=== PATIENT | female | born 1950 | race Caucasian/White ===

== ENCOUNTER → 2017-06-07 | Outpatient (CLI) | payer MEDICARE | END | disposition home or self-care (01) | LOC: CFH 11:43 | PROVIDERS: ATTEND Internal Medicine Geriatric Medicine | DX: Z12.2 Encounter for screening for malignant neoplasm of respiratory organs (principal); Z13.820 Encounter for screening for osteoporosis; I25.10 Atherosclerotic heart disease of native coronary artery without angina pectoris; F17.210 Nicotine dependence, cigarettes, uncomplicated | CPT/HCPCS: 77080; G0297 ==

== ENCOUNTER 2018-12-15 05:20 | Inpatient (IN) | payer MEDICARE ==
[~2018-12-15] VITALS: Ht 154.9 cm; Wt 64.7 kg
[2018-12-15] MEDS ORDERED: ASPI-496 PO (05:44)
[2018-12-15] MEDS ORDERED: SYNTHROID (05:44)
[2018-12-15] MEDS ORDERED: ONDANSETRON 2MG/ML, 2ML ONE (05:46)
[2018-12-15] MEDS ORDERED: MORPHINE SULFATE 4 MG/ML, 1ML ONE (05:47)
[2018-12-15] MEDS ORDERED: MORPHINE SULFATE 4 MG/ML, 1ML IVPush PRN (06:00)
[2018-12-15] MEDS ORDERED: ONDANSETRON 2MG/ML, 2ML IVPush ONE (06:00)
[2018-12-15] MEDS ORDERED: PLEASE ENTER ALLERGIES MC SCH (06:00)
--- NOTE | 2018-12-15 06:01 | NUR ---
PT PLACED ON 3L O2 PER N/C. PT DESATED TO 79% AFTER ORDERED PAIN MEDS. PT GIVEN WARM BLANKET. LAB IN TO DRAW BLOOD AT THIS TIME. CXR HAS BEEN DONE.
[2018-12-15 06:17] LABS: BASOPHILS # (AUTO) 0.09 x10^3/uL (0-0.1); BASOPHILS % (AUTO) 1 % (0-1); EOSINOPHILS # (AUTO) 0.17 x10^3/uL (0-0.4); EOSINOPHILS % (AUTO) 2 % (1-7); LYMPHOCYTES # (AUTO) 1.82 x10^3/uL (1-3.4); LYMPHOCYTES % (AUTO) 18 % (22-44); MD NO; MEAN CORPUSCULAR HEMOGLOBIN 28.2 pg (27.0-34.8); MEAN CORPUSCULAR HGB CONC 33.1 g/dL (32.4-35.8); MEAN CORPUSCULAR VOLUME 85.4 fL (80-100); MEAN PLATELET VOLUME 9.9 fL (7.4-10.4); MONOCYTES # (AUTO) 0.37 x10^3/uL (0.2-0.8); MONOCYTES % (AUTO) 4 % (2-9); NEUTROPHILS # (AUTO) 7.49 x10^3/uL (1.8-6.8); NEUTROPHILS % (AUTO) 75 % (42-75); PLATELET COUNT 200 x10^3/uL (130-400); RED BLOOD COUNT 5.81 x10^6/uL (3.82-5.3); RED CELL DISTRIBUTION WIDTH 15.3 % (9.6-15.2)
[2018-12-15 06:28] LABS: ALANINE AMINOTRANSFERASE 25 U/L (12-78); ALBUMIN 3.7 g/dL (3.4-5.0); ANION GAP 4 mmol/L (5-15); CALCIUM 8.7 mg/dL (8.5-10.1); CHLORIDE 113 mmol/L (98-107); CREATININE 0.71 mg/dL (0.55-1.02); INTERNATIONAL NORMALIZED RATIO 1.01 (0.93-1.1); PROTHROMBIN TIME 10.6 Seconds (9.6-11.5)
[2018-12-15 06:33] LABS: ALKALINE PHOSPHATASE 82 U/L (45-117); BILIRUBIN,TOTAL 0.4 mg/dL (0.2-1.0); TOTAL PROTEIN 6.8 g/dL (6.4-8.2); TROPONIN I 0.049 ng/mL (0.000-0.045)
--- NOTE | 2018-12-15 06:58 | NUR ---
REPORT TO JULIO C CRUZ.
[2018-12-15] MEDS ORDERED: PROMETHAZINE 25 MG/ML, 1ML IM PRN (07:30)
[2018-12-15] MEDS ORDERED: ONDANSETRON 2MG/ML, 2ML IVPush PRN (07:30)
[2018-12-15] MEDS ORDERED: NITROGLYCERIN 0.4 MG BOTTLE (25 TABS) SL PRN (07:30)
[2018-12-15] MEDS ORDERED: LABETALOL 5MG/ML, 20ML IVPush PRN (07:30)
[2018-12-15] MEDS ORDERED: morphine SULFATE 10 MG/ML, 1ML IVPush PRN (07:30)
[2018-12-15] MEDS ORDERED: DEXTROSE 50%, 50ML SYRINGE IVPush PRN (07:30)
[2018-12-15] MEDS ORDERED: DEXTROSE 4 GM TAB.CHEW PO PRN (07:30)
[2018-12-15] MEDS ORDERED: hydrALAzine 20 MG/ML, 1ML IVPush PRN (07:30)
[2018-12-15] MEDS ORDERED: GLUCAGON 1 MG IM PRN (07:30)
[2018-12-15] MEDS ORDERED: ACETAMINOPHEN 325 MG TABLET PO PRN (07:30)
[2018-12-15] MEDS ORDERED: HEPARIN 25,000 UNITS/500ML PMX 500 ML IV STA (08:26)
[2018-12-15] MEDS: SODIUM CHLORIDE 0.9% 1,000 ML IV SCH ×2 (08:39→09:36)
[2018-12-15 08:52] LABS: HEMOGLOBIN A1C 5.4 % (4.2-6.3)
[2018-12-15] MEDS ORDERED: HEPARIN 5,000 UNITS/ML, 1ML IV PRN (09:00)
[2018-12-15] MEDS ORDERED: HEPARIN 25,000 UNITS/500ML PMX 500 ML IV PRN (09:00)
[2018-12-15] MEDS ORDERED: HEPARIN 5,000 UNITS/ML, 1ML IV ONE (09:00)
[2018-12-15 09:21] VITALS: BP 139/84
[2018-12-15] MEDS: ASPIRIN 81 MG TABLET CHEW PO SCH (09:36)
[2018-12-15] MEDS: SODIUM CHLORIDE FLUSH 10ML SYR IVF SCH ×2 (09:36→20:50)
[2018-12-15] MEDS ORDERED: SODIUM CHLORIDE 0.9% 1,000 ML IV SCH ×2 (11:00→13:20)
[2018-12-15] MEDS ORDERED: OMNIPAQUE 350 MG/ML, 100ML BOTTLE ONE (11:29)
[2018-12-15] MEDS: LISINOPRIL 5 MG TABLET PO SCH ×2 (11:54→20:50)
[2018-12-15] MEDS: NICOTINE 14MG/24 HR PATCH.TD24 TD SCH (11:54)
[2018-12-15] MEDS: CARVEDILOL 6.25 MG TABLET PO SCH ×2 (11:54→19:48)
[2018-12-15] MEDS ORDERED: LIDOCAINE 2%, 20ML ONE (12:05)
[2018-12-15] MEDS ORDERED: MIDAZOLAM 1 MG/ML, 5ML ONE (12:05)
[2018-12-15] MEDS ORDERED: FENTANYL PF 100 MCG/2ML ONE (12:05)
[2018-12-15] MEDS ORDERED: VERAPAMIL 2.5 MG/ML, 2ML ONE (12:05)
[2018-12-15] MEDS ORDERED: NITROGLYCERIN 5 MG/ML, 10ML ONE (12:05)
[2018-12-15] MEDS ORDERED: HEPARIN 1,000 UNITS/ML, 10ML ONE (12:05)
[2018-12-15] MEDS ORDERED: BIVALIRUDIN 250 MG ONE (12:05)
[2018-12-15] MEDS ORDERED: PRASUGREL 10 MG TABLET ONE (13:05)
[2018-12-15] MEDS ORDERED: BIVALIRUDIN 250 MG in SODIUM CHLORIDE 0.9% 50 ML IV SCH (13:20)
[2018-12-15 13:35] VITALS: BP 112/72
[2018-12-15 20:12] VITALS: BP 114/70
[2018-12-15] MEDS: ATORVASTATIN 80 MG TABLET PO SCH (20:50)
[2018-12-16 03:28] VITALS: BP 129/83
[2018-12-16] MEDS: CARVEDILOL 6.25 MG TABLET PO SCH (05:48)
[2018-12-16] MEDS: SODIUM CHLORIDE 0.9% 1,000 ML IV SCH (05:49)
[2018-12-16 06:09] LABS: BASOPHILS # (AUTO) 0.11 x10^3/uL (0-0.1); BASOPHILS % (AUTO) 1 % (0-1); EOSINOPHILS # (AUTO) 0.22 x10^3/uL (0-0.4); EOSINOPHILS % (AUTO) 3 % (1-7); LYMPHOCYTES # (AUTO) 2.69 x10^3/uL (1-3.4); LYMPHOCYTES % (AUTO) 31 % (22-44); MD NO; MEAN CORPUSCULAR HEMOGLOBIN 27.7 pg (27.0-34.8); MEAN CORPUSCULAR VOLUME 84.2 fL (80-100); MEAN PLATELET VOLUME 9.8 fL (7.4-10.4); MONOCYTES # (AUTO) 0.57 x10^3/uL (0.2-0.8); MONOCYTES % (AUTO) 7 % (2-9); NEUTROPHILS % (AUTO) 59 % (42-75); PLATELET COUNT 191 x10^3/uL (130-400); RED BLOOD COUNT 5.37 x10^6/uL (3.82-5.3); RED CELL DISTRIBUTION WIDTH 15.2 % (9.6-15.2)
[2018-12-16 06:22] LABS: ALBUMIN 3.2 g/dL (3.4-5.0); ANION GAP 6 mmol/L (5-15); CALCIUM 8.2 mg/dL (8.5-10.1); CHLORIDE 112 mmol/L (98-107)
[2018-12-16 06:26] LABS: ALANINE AMINOTRANSFERASE 62 U/L (12-78); ALKALINE PHOSPHATASE 81 U/L (45-117); BILIRUBIN,TOTAL 0.5 mg/dL (0.2-1.0); CHOL/HDL RATIO 4.4; CHOLESTEROL, TOTAL 193 mg/dL (140-239); CREATININE 0.53 mg/dL (0.55-1.02); HDL CHOL % 23 % (28-40); HDL CHOLESTEROL (DIRECT) 44 mg/dL (40-60); LDL CHOLESTEROL,CALCULATED 125 mg/dL (54-169); LDL/HDL RATIO 2.8 (0.5-3.0); TOTAL PROTEIN 5.9 g/dL (6.4-8.2); TRIGLYCERIDES 118 mg/dL (50-200); VLDL CHOLESTEROL 24 mg/dL (0-25)
[2018-12-16 08:00] VITALS: BP 125/78
[2018-12-16] MEDS: LISINOPRIL 5 MG TABLET PO SCH (08:34)
[2018-12-16] MEDS: ASPIRIN 81 MG TABLET CHEW PO SCH (08:35)
[2018-12-16] MEDS: PRASUGREL 10 MG TABLET PO SCH (08:35)
[2018-12-16] MEDS: NICOTINE 14MG/24 HR PATCH.TD24 TD SCH (08:37)
[2018-12-16] MEDS: SODIUM CHLORIDE FLUSH 10ML SYR IVF SCH ×2 (08:37→20:50)
[2018-12-16 12:30] VITALS: BP 122/77
[2018-12-16] MEDS: CARVEDILOL 3.125 MG TABLET PO SCH (18:23)
[2018-12-16] MEDS: LISINOPRIL 10 MG TABLET PO SCH (20:50)
[2018-12-16] MEDS: ATORVASTATIN 80 MG TABLET PO SCH (20:50)
[2018-12-16 21:19] VITALS: BP 134/86
[2018-12-17 04:00] VITALS: BP 118/69
[2018-12-17] MEDS: CARVEDILOL 3.125 MG TABLET PO SCH (05:12)
[2018-12-17] MEDS ORDERED: LEVOTHYROXINE 50 MCG TABLET PO SCH (06:00)
[2018-12-17 06:05] LABS: ALBUMIN 3.2 g/dL (3.4-5.0); CHLORIDE 113 mmol/L (98-107)
[2018-12-17 06:21] LABS: ALANINE AMINOTRANSFERASE 155 U/L (12-78); ALKALINE PHOSPHATASE 104 U/L (45-117); ANION GAP 8 mmol/L (5-15); BILIRUBIN,TOTAL 0.5 mg/dL (0.2-1.0); CREATININE 0.55 mg/dL (0.55-1.02); TOTAL PROTEIN 5.8 g/dL (6.4-8.2)
[2018-12-17 07:00] VITALS: BP 121/87
[2018-12-17] MEDS: NICOTINE 14MG/24 HR PATCH.TD24 TD SCH (08:23)
[2018-12-17] MEDS: LISINOPRIL 10 MG TABLET PO SCH (08:23)
[2018-12-17] MEDS: SODIUM CHLORIDE FLUSH 10ML SYR IVF SCH (08:24)
[2018-12-17] MEDS: ASPIRIN 81 MG TABLET CHEW PO SCH (08:24)
[2018-12-17] MEDS: PRASUGREL 10 MG TABLET PO SCH (08:24)
[2018-12-17] MEDS ORDERED: LISI-167 PO (11:13)
[2018-12-17] MEDS ORDERED: CARV3.1212 PO (11:13)
[2018-12-17] MEDS ORDERED: PRAS10TA4 PO (11:13)
[2018-12-17] MEDS ORDERED: NITR0.4T28 SL (11:13)
[2018-12-17] MEDS ORDERED: ATOR40TA78 PO ×2 (11:13)
[2018-12-17] MEDS ORDERED: ATOR20TA37 PO (11:32)
[2018-12-17] MEDS ORDERED: ATORVASTATIN 40 MG TABLET PO SCH (21:00)
== END 2018-12-17 13:30 | disposition home or self-care (01) | DRG 246 ==
LOC: ED 07:30 → 5SO 07:31 → DCLOUNGE 12-17 13:20
PROVIDERS: ADMIT Internal Medicine; ATTEND Internal Medicine
PROC: 027034Z Dilation of Coronary Artery, One Artery with Drug-eluting Intraluminal Device, Percutaneous Approach (ICD-10-PCS; principal; 2018-12-15)
PROC: 4A023N7 Measurement of Cardiac Sampling and Pressure, Left Heart, Percutaneous Approach (ICD-10-PCS; 2018-12-15)
PROC: B2111ZZ Fluoroscopy of Multiple Coronary Arteries using Low Osmolar Contrast (ICD-10-PCS; 2018-12-15)
PROC: B2151ZZ Fluoroscopy of Left Heart using Low Osmolar Contrast (ICD-10-PCS; 2018-12-15)
DX: I21.4 Non-ST elevation (NSTEMI) myocardial infarction (principal); I50.31 Acute diastolic (congestive) heart failure; E03.9 Hypothyroidism, unspecified; I11.0 Hypertensive heart disease with heart failure; I25.110 Atherosclerotic heart disease of native coronary artery with unstable angina pectoris; R00.1 Bradycardia, unspecified; F17.210 Nicotine dependence, cigarettes, uncomplicated; Z90.710 Acquired absence of both cervix and uterus; Z88.5 Allergy status to narcotic agent; Z71.6 Tobacco abuse counseling; Z98.42 Cataract extraction status, left eye; Z98.41 Cataract extraction status, right eye
CPT/HCPCS: 36415; 71045; 71275; 74175; 80053; 80061; 82962; 83036; 83690; 84443; 84484; 85025; 85520; 85610; 85730; 93005; 93306; 93458; 96374; 96375; 99156; 99157; C1894; C9600; G0378; J0583; J1644; J2250; J2405; J3010; Q9967; C1725; C1874; C1887; J2270; J7030

== ENCOUNTER 2019-02-09 12:23 | Outpatient (CLI) | payer MEDICARE | END 2019-02-09 23:59 | disposition home or self-care (01) | LOC: CFH 12:23 | PROVIDERS: ATTEND Internal Medicine Cardiovascular Disease | DX: I08.2 Rheumatic disorders of both aortic and tricuspid valves (principal); I10 Essential (primary) hypertension; E78.5 Hyperlipidemia, unspecified; I25.2 Old myocardial infarction | CPT/HCPCS: 0399T; 93306 ==

== ENCOUNTER 2020-03-11 22:11 | Emergency (ER) | payer MEDICARE ==
[~2020-03-11] VITALS: Ht 154.9 cm; Wt 66.0 kg
[~2020-03-11 22:11] MED LIST: ASPI-496 PO; ATOR20TA37 PO; ATOR40TA78 PO; CARV3.1212 PO; LISI-167 PO; NITR0.4T28 SL; PRAS10TA4 PO; SYNTHROID
[2020-03-11 22:24] VITALS: BP 132/52
[2020-03-11] MEDS ORDERED: LIDOCAINE 1%-EPI 1:100K, 20ML ONE (22:33)
[2020-03-11] MEDS ORDERED: NEOSPORIN OINT. PKT 1 PACKET ONE (22:52)
== END 2020-03-11 23:05 | disposition home or self-care (01) ==
LOC: ED 22:41
DX: S01.511A Laceration without foreign body of lip, initial encounter (principal); E03.9 Hypothyroidism, unspecified; F17.210 Nicotine dependence, cigarettes, uncomplicated; W01.0XXA Fall on same level from slipping, tripping and stumbling without subsequent striking against object, initial encounter; Y93.89 Activity, other specified; Y92.098 Other place in other non-institutional residence as the place of occurrence of the external cause; Y99.8 Other external cause status
CPT/HCPCS: 12011; 99282; 99406